=== PATIENT | female | born 1990 | race African-American/Black ===

== ENCOUNTER 2016-12-18 04:35 | Emergency (ER) | payer OTHER ==
[~2016-12-18] VITALS: Ht 165.1 cm; Wt 64.4 kg
--- NOTE | 2016-12-18 04:49 | PHYS DOC ---
Adult General Chief Complaint Chief Complaint: ABDOMINAL PAIN HPI HPI Patient is a 26 year old female who presents with complaint of left upper quadrant abdominal pain. Patient states her symptoms started week ago. Patient states her symptoms have been constant. Patient states that they seem to worsen when she eats but otherwise remained constant. Patient has not taken medications to help with her symptoms. Patient denies any associated nausea, vomiting, fever, but she does admit to associated vaginal discharge. Patient denies vaginal bleeding. Patient rates her pain as 6 out of 10. Patient's last menstrual period was November 01, 2016. Review of Systems Review of Systems Constitutional: Denies fever or chills [] Eyes: Denies change in visual acuity, redness, or eye pain [] HENT: Denies nasal congestion or sore throat [] Respiratory: Denies cough or shortness of breath [] Cardiovascular: Denies chest pain or edema [] GI: Abdominal pain, denies nausea, vomiting, or diarrhea [] : Denies dysuria or hematuria [] Musculoskeletal: Denies back pain or joint pain [] Integument: Denies rash or skin lesions [] Neurologic: Denies headache, focal weakness or sensory changes [] Current Medications Current Medications Current Medications Medications (Trade) Dose Ordered Sig/Shaye Start Time Stop Time Status Last Admin Dose Admin Dicyclomine HCl (Bentyl) 10 mg 1X ONCE 12/18/16 05:15 12/18/16 05:24 DC 12/18/16 05:31 10 MG Famotidine (Pepcid) 20 mg 1X ONCE 12/18/16 05:15 12/18/16 05:24 DC 12/18/16 05:31 20 MG Ondansetron HCl (Zofran) 4 mg 1X ONCE 12/18/16 05:15 12/18/16 05:24 DC 12/18/16 05:31 4 MG Potassium Chloride (Klor-Con) 20 meq 1X ONCE 12/18/16 07:00 12/18/16 07:00 DC 12/18/16 06:44 20 MEQ Sodium Chloride 1,000 ml @ 1,000 mls/hr Q1H 12/18/16 05:00 12/18/16 06:00 DC 12/18/16 05:31 1,000 MLS/HR Allergies Allergies Allergies Coded Allergies Type Severity Reaction Last Updated Verified No Known Drug Allergies 12/18/16 No Physical Exam Physical Exam Constitutional: Well developed, well nourished, no acute distress, non-toxic appearance. [] HENT: Normocephalic, atraumatic, bilateral external ears normal, oropharynx moist, no oral exudates, nose normal. [] Eyes: PERRLA, EOMI, conjunctiva normal, no discharge. [] Neck: Normal range of motion, no tenderness, supple, no stridor. [] Cardiovascular:Heart rate regular rhythm, no murmur [] Lungs & Thorax: Bilateral breath sounds clear to auscultation [] Abdomen: Bowel sounds normal, soft, left upper quadrant tenderness to palpation , no guarding or rebound tenderness, no masses, no pulsatile masses. Pelvic: Normal external exam, cervical os closed, no active bleeding, no cervical motion tenderness, no midline or bilateral adnexal tenderness on bimanual exam. [] Skin: Warm, dry, no erythema, no rash. [] Back: No tenderness, no CVA tenderness. [] Extremities: No tenderness, no cyanosis, no clubbing, ROM intact, no edema. [] Neurologic: Alert and oriented X 3, normal motor function, normal sensory function, no focal deficits noted. [] Current Patient Data Vital Signs Vital Signs Date Time Temp Pulse Resp B/P (MAP) Pulse Ox O2 Delivery O2 Flow Rate FiO2 12/18/16 06:30 104/54 (71) 12/18/16 06:30 82 100 Room Air 12/18/16 04:40 98.7 16 98.7 Lab Values Laboratory Tests Test 12/18/16 04:00 12/18/16 04:45 12/18/16 04:52 POC Urine HCG, Qualitative Hcg positive (Negative) White Blood Count 14.3 x10^3/uL (4.0-11.0) H Red Blood Count 4.29 x10^6/uL (3.50-5.40) Hemoglobin 11.1 g/dL (12.0-15.5) L Hematocrit 35.0 % (36.0-47.0) L Mean Corpuscular Volume 82 fL (79-100) Mean Corpuscular Hemoglobin 26 pg (25-35) Mean Corpuscular Hemoglobin Concent 32 g/dL (31-37) Red Cell Distribution Width 15.0 % (11.5-14.5) H Platelet Count 283 x10^3/uL (140-400) Neutrophils (%) (Auto) 64 % (31-73) Lymphocytes (%) (Auto) 28 % (24-48) Monocytes (%) (Auto) 8 % (0-9) Eosinophils (%) (Auto) 0 % (0-3) Basophils (%) (Auto) 1 % (0-3) Neutrophils # (Auto) 9.2 x10^3uL (1.8-7.7) H Lymphocytes # (Auto) 4.0 x10^3/uL (1.0-4.8) Monocytes # (Auto) 1.1 x10^3/uL (0.0-1.1) Eosinophils # (Auto) 0.0 x10^3/uL (0.0-0.7) Basophils # (Auto) 0.1 x10^3/uL (0.0-0.2) Maternal Serum HCG Beta Subunit 42418 mIU/mL (0-6) H Sodium Level 137 mmol/L (136-145) Potassium Level 3.3 mmol/L (3.5-5.1) L Chloride Level 101 mmol/L (98-107) Carbon Dioxide Level 22 mmol/L (21-32) Anion Gap 14 (6-14) Blood Urea Nitrogen 7 mg/dL (7-20) Creatinine 0.7 mg/dL (0.6-1.0) Estimated GFR (Cockcroft-Gault) 124.4 BUN/Creatinine Ratio 10 (6-20) Glucose Level 84 mg/dL (70-99) Calcium Level 9.4 mg/dL (8.5-10.1) Magnesium Level 1.9 mg/dL (1.8-2.4) Total Bilirubin 0.5 mg/dL (0.2-1.0) Aspartate Amino Transferase (AST) 15 U/L (15-37) Alanine Aminotransferase (ALT) 15 U/L (14-59) Alkaline Phosphatase 70 U/L (46-116) Total Protein 8.7 g/dL (6.4-8.2) H Albumin 3.7 g/dL (3.4-5.0) Albumin/Globulin Ratio 0.7 (1.0-1.7) L Lipase 126 U/L (73-393) Urine Collection Type Unknown Urine Color Shayna Urine Clarity Clear Urine pH 6.0 Urine Specific [place] >=1.030 Urine Protein Negative mg/dL (NEG-TRACE) Urine Glucose (UA) Negative mg/dL (NEG) Urine Ketones (Stick) 15 mg/dL (NEG) Urine Blood Negative (NEG) Urine Nitrite Negative (NEG) Urine Bilirubin Negative (NEG) Urine Urobilinogen Dipstick 1.0 mg/dL (0.2 mg/dL) Urine Leukocyte Esterase Small (NEG) Urine RBC 0 /HPF (0-2) Urine WBC 5-10 /HPF (0-4) Urine Squamous Epithelial Cells Mod /LPF Urine Bacteria Many /HPF (0-FEW) Urine Mucus Mod /LPF Laboratory Tests 12/18/16 04:45 Laboratory Tests 12/18/16 04:45 Microbiology 12/18/16 Wet Prep - Final, Complete Microbiology 12/18/16 Wet Prep - Final, Complete EKG EKG Not performed [] Radiology/Procedures Radiology/Procedures Transvaginal ultrasound pending [] [facility] [address] [place], [place] [id number] IMAGING REPORT Signed PATIENT: DAVID ULLOA ACCOUNT: [id number] : 1990 LOCATION: ER AGE: 26 SEX: F EXAM STATUS: REG ER ORD. PHYSICIAN: JUSTYNA KAYE MD REASON: abdominal pain, + test, last menstrual period November 01, 2016 PROCEDURE: PREG 1ST TRIMESTER INDICATION: Pelvic pain. COMPARISON: None TECHNIQUE: Transabdominal grayscale and spectral doppler ultrasound images are obtained of the pelvis. Transvaginal ultrasound images obtained as well. FINDINGS: Dimensions are in mm Uterus: 100 x 64 x 51 Endometrial Stripe: There is an intrauterine gestational sac identified with a pole with crown-rump length of 7 millimeters and heartbeat of 125 Right ovary: 36 x 23 x 22, probable corpus luteum cyst, 22 x 20 millimeter. Left ovary: 22 x 14 x 13 Vascular flow is identified to the bilateral ovaries. Small free fluid in pelvis. IMPRESSION: Intrauterine identified with estimated gestational age of 6 weeks and 4 days with estimated due date of August 08, 2017 and a positive heartbeat. Recommend routine anomaly screening at 18-22 weeks. Electronically signed by: Mariana Elder (December 18, 2016 06:11:36) DICTATED and SIGNED BY: MARIANA ELDER MD DATE: 12/18/16 0611 CC: JUSTYNA KAYE MD; NO PCP ~ Impressions: abdominal pain IUP UTI in Hypokalemia Course & Med Decision Making Course & Med Decision Making Pertinent Labs and Imaging studies reviewed. (See chart for details) Patient started on IV fluids, Pepcid, Zofran, and Bentyl. Patient found have positive test in the emergency department. Due to presence of abdominal pain, ultrasound was ordered to evaluate for possible ectopic . Results pending at time of sign out. Patient was signed out to Dr. Gallardo [id number]. Adavied. Pt was checked out to me as US pending, if US showes IUP without any other concerns, D/C patient. Her discharge instructions and scripts had been written by Dr. Kaye prior to the patient being checked out to me. The ultrasound did not show any acute abnormailities. Pt's potassium replaced with 20 meq po times one, Pt being discharged with antibiotics for uti and OB follow up. Return precautions discussed with the patient and she is in stable condition and agreeable to the plan of being discharged and returning if her symptoms return or get worse. Patient is instructed not to take nonsteroidal such as aspirin, Aleve, Advil. Dragon Disclaimer Dragon Disclaimer This electronic medical record was generated, in whole or in part, using a voice recognition dictation system. Departure Departure Impression: Primary Impression: Abdominal pain during in first trimester Additional Impression: Urinary tract infection Disposition: 01 HOME, SELF-CARE Condition: STABLE Referrals: DARIUS HARDING MD Patient Instructions: Abdominal Pain During , - Urinary Tract Infection Additional Instructions: Follow-up in [address] Harding of [facility] for reevaluation and to initiate care. Return to the emergency department for any worsening symptoms. Scripts Nitrofurantoin Monohyd/M-Cryst (MACROBID 100 MG CAPSULE) 100 Mg Capsule 1 CAP PO BID, #14 CAP Prov: JUSTYNA KAYE MD 12/18/16 Problem Qualifiers Additional Impression: Urinary tract infection Urinary tract infection type: site unspecified Hematuria presence: without hematuria Qualified Codes: N39.0 - Urinary tract infection, site not specified JUSTYNA KAYE MD December 18, 2016 04:49 MARIA ELENA GALLARDO MD December 18, 2016 06:32
[2016-12-18 04:52] LABS: BASO # 0.1 x10^3/uL (0.0-0.2); BASO % 1 % (0-3); EOS % 0 % (0-3); HEMOGLOBIN 11.1 g/dL (12.0-15.5); LYMPH % 28 % (24-48); MEAN CORPUSCULAR HEMOGLOBIN 26 pg (25-35); MEAN CORPUSCULAR HGB CONC 32 g/dL (31-37); MEAN CORPUSCULAR VOLUME 82 fL (79-100); MONO % 8 % (0-9); NEUT % 64 % (31-73); PLATELET COUNT 283 x10^3/uL (140-400); RED BLOOD COUNT 4.29 x10^6/uL (3.50-5.40); WHITE BLOOD COUNT 14.3 x10^3/uL (4.0-11.0)
[2016-12-18 05:02] LABS: CALCIUM 9.4 mg/dL (8.5-10.1); CREATININE 0.7 mg/dL (0.6-1.0); GFR 124.4; POTASSIUM 3.3 mmol/L (3.5-5.1)
[2016-12-18 05:03] LABS: BILIRUBIN,URINE NEGATIVE (NEG); GLUCOSE,URINE NEGATIVE (NEG); NITRITE,URINE NEGATIVE (NEG); PROTEIN,URINE NEGATIVE (NEG-TRACE)
[2016-12-18 05:08] LABS: ALBUMIN 3.7 g/dL (3.4-5.0); ALBUMIN/GLOBULIN RATIO 0.7 (1.0-1.7); MAGNESIUM 1.9 mg/dL (1.8-2.4); TOTAL BILIRUBIN 0.5 mg/dL (0.2-1.0); TOTAL PROTEIN 8.7 g/dL (6.4-8.2)
[2016-12-18 05:11] LABS: BACTERIA,URINE MANY /HPF (0-FEW); RBC,URINE 0 /HPF (0-2); SQUAMOUS EPITHELIAL CELL,UR MOD /LPF
[2016-12-18] MEDS: FAMOTIDINE 20 MG/2 ML VIAL IVP ONE (05:31)
[2016-12-18] MEDS: ONDANSETRON PF 4 MG/2 ML VIAL. IV ONE (05:31)
[2016-12-18] MEDS: DICYCLOMINE HCL 10 MG CAPSULE PO ONE (05:31)
[2016-12-18] MEDS: IV NORMAL SALINE 1000ML BAG 1,000 ML IV SCH (05:31)
[2016-12-18] MEDS ORDERED: NITR100C62 PO (05:52)
--- NOTE | 2016-12-18 06:13 | RAD ---
INDICATION: Pelvic pain. COMPARISON: None TECHNIQUE: Transabdominal grayscale and spectral doppler ultrasound images are obtained of the pelvis. Transvaginal ultrasound images obtained as well. FINDINGS: Dimensions are in mm Uterus: 100 x 64 x 51 Endometrial Stripe: There is an intrauterine gestational sac identified with a pole with crown-rump length of 7 millimeters and heartbeat of 125 Right ovary: 36 x 23 x 22, probable corpus luteum cyst, 22 x 20 millimeter. Left ovary: 22 x 14 x 13 Vascular flow is identified to the bilateral ovaries. Small free fluid in pelvis. IMPRESSION: Intrauterine identified with estimated gestational age of 6 weeks and 4 days with estimated due date of August 08, 2017 and a positive heartbeat. Recommend routine anomaly screening at 18-22 weeks. Electronically signed by: Michael Maurice (December 18, 2016 06:11:36)
[2016-12-18 06:30] VITALS: BP 104/54
--- NOTE | 2016-12-18 06:33 | ACF ---
Admission Forms Criteria URINARY COMPLICATIONS Clinical Indications for Inpatient Care (Place 'X' for any and all applicable criteria): Ongoing inpatient care may be indicated for urinary complications with ANY ONE of the following: [ ]I. Urinary tract infection requiring inpatient care as indicated by ANY ONE of the following(8)(19)(20): [ ]a) Severe symptoms (eg, high fever, severe pain) [ ]b) Vomiting or dehydration requiring ongoing inpatient care [ ]c) IV antibiotic needs that cannot be managed at lower level of care [ ]d) Hemodynamic instability [ ]e) Obstruction of collecting system by stone or tumor [ ]II. Urinary retention requiring drainage or surgery (3)(4)(5)(17)(18) [ ]III. Renal failure (Use Renal Failure Criteria for further information.) [ ]IV. Oliguria(30) [ ]V. Post obstructive diuresis requiring close monitoring of urine output and intravenous compensation for excessive fluid losses(33) Extended stay beyond goal length of stay for primary condition may be needed until ALL of the following are present(3)(4)(5)(8): [ ]a) Renal function (creatinine) at baseline, or daily decreases in creatinine consistent with renal function return [ ]b) Voiding adequately or with urinary catheter or percutaneous suprapubic tube and management regimen in place that is performable at lower level of care. [ ]c) Urine output adequate [ ]d) Fever absent or resolving [ ]e) Infection absent or treatable at next level of care The original [employer] content created by [employer] has been revised. The portions of the content which have been revised are identified through the use of italic text or in bold, and [facility] has neither reviewed nor approved the modified material. All other unmodified content is copyright [employer] Please see references footnoted in the original [facility] edition 2016 MARY GROVE December 18, 2016 06:33
[2016-12-18] MEDS: POTASSIUM CHLORIDE 20 MEQ TABLET.ER. PO ONE (06:44)
== END 2016-12-18 06:50 | disposition home or self-care (01) ==
LOC: ER 04:35
DX: O26.891 Other specified pregnancy related conditions, first trimester (principal); R10.12 Left upper quadrant pain; O23.41 Unspecified infection of urinary tract in pregnancy, first trimester; Z3A.01 Less than 8 weeks gestation of pregnancy
CPT/HCPCS: 36415; 76801; 80053; 81001; 83690; 83735; 84702; 84703; 85027; 86850; 86900; 86901; 87491; 87591; 96361; 96374; 96375; 99285; J2405; J7030; Q0111; S0028; 81025; 87086

== ENCOUNTER 2017-04-22 14:06 | Observation (INO) | payer OTHER ==
[~2017-04-22 14:06] MED LIST: NITR100C62 PO
[2017-04-22] MEDS ORDERED: IV RINGERS,LACTATED 1000ML 1,000 ML IV SCH (14:52)
[2017-04-22 15:06] LABS: BILIRUBIN,URINE NEGATIVE (NEG); GLUCOSE,URINE NEGATIVE (NEG); NITRITE,URINE NEGATIVE (NEG); PROTEIN,URINE NEGATIVE (NEG-TRACE)
[2017-04-22 15:13] LABS: BARBITURATES NEG (NEG); BENZODIAZEPINES NEG (NEG); CANNABINOIDS NEG (NEG); COCAINE NEG (NEG); METHADONE NEG (NEG); OPIATES NEG (NEG); PHENCYCLIDINE NEG (NEG)
[2017-04-22 15:14] LABS: BACTERIA,URINE MANY /HPF (0-FEW); RBC,URINE 0 /HPF (0-2); SQUAMOUS EPITHELIAL CELL,UR MANY /LPF
== END 2017-04-22 15:50 | disposition home or self-care (01) ==
LOC: 3 SO LND 14:06
PROVIDERS: ADMIT Specialist; ATTEND Specialist
DX: O26.892 Other specified pregnancy related conditions, second trimester (principal); R10.2 Pelvic and perineal pain; Z3A.24 24 weeks gestation of pregnancy
CPT/HCPCS: 80307; 81001; G0378; G0379; G0479